=== PATIENT | female | born 1995 | race African-American/Black ===

== ENCOUNTER 2019-02-14 23:35 | Emergency (ER) | payer OTHER ==
[2019-02-14 23:58] LABS: #Eosinphils 0.2 thou/uL (0.0-0.7); #Lymphocytes 2.3 thou/uL (1.20-3.40); #Neutrophils 7.5 thou/uL (1.40-6.50); %Basophils 0.3 % (0.0-1.0); %Eosinophils 1.4 % (0.0-10.0); %Lymphocytes 21.2 % (21.0-51.0); %Monocytes 8.9 % (0.0-10.0); %Neutrophils 68.2 % (42.0-75.0); Hemoglobin 13.4 g/dL (12.0-16.0); Mean Corpuscular HGB CONC 34.9 g/dL (32.0-36.0); Mean Corpuscular Hemoglobin 29.4 pg (27.0-31.0); Mean Corpuscular Volume 84.3 fL (78.0-98.0); Mean Platelet Volume 8.4 fL (7.4-10.4); Platelet Count 316 thou/uL (130-400); RBC Distribution Width 11.6 % (11.5-14.5); Red Blood Cell (RBC) Count 4.56 mill/uL (4.20-5.40); White Blood Cell (WBC) Count 10.9 thou/uL (4.8-10.8)
--- NOTE | 2019-02-15 00:30 | ULT ---
Ultrasound pelvis: DATE: 02/15/2019 12:08 AM HISTORY: 23-year-old female with pelvic pain and vaginal bleeding. FINDINGS: There is an intrauterine gestational sac containing pole. Carlyle rump length: 5.9 cm. 12 weeks 3 days. heart rate: 163 BPM. Placenta: Posterior and covers the internal cervical os. lie: Breech. No subchorionic hemorrhage. Bilateral ovaries normal in size with blood flow demonstrated. 2 cm round right ovarian corpus luteal cyst. No free fluid in the cul-de-sac. IMPRESSION: 1. Live late first trimester intrauterine gestation estimated to be 12 weeks 3 days gestational age. 2. Low-lying placenta. Recommend follow-up.
[2019-02-15 00:50] LABS: Bilirubin Negative (Negative); Blood, Urine Negative (Negative); Clarity Clear (Clear); Glucose, Urine (Dipstick) Normal (Negative); Leukocyte Negative Leu/uL (Negative); Nitrite Negative (Negative); Protein, Urine (Dipstick) Negative (Neg-Trace); Urobilinogen Normal mg/dL (Less than 2)
[2019-02-17 00:53] LABS: Chlamydia by PCR Not Detected (NotDetected); GC by PCR Not Detected (NotDetected)
== END 2019-02-15 01:28 | disposition home or self-care (01) ==
LOC: ERS 23:35
DX: O44.51 Low lying placenta with hemorrhage, first trimester (principal); Z3A.12 12 weeks gestation of pregnancy
CPT/HCPCS: 36415; 76856; 81003; 84702; 85025; 86900; 86901; 87480; 87491; 87510; 87591; 87660; 90384; 93976; 96372

== ENCOUNTER 2019-04-12 13:32 | Outpatient (CLI) | payer OTHER ==
--- NOTE | 2019-04-12 19:19 | ULT ---
OB ULTRASOUND: History: anatomy. FINDINGS: Viable intrauterine . Gestational age by ultrasound is 20 weeks 2 days. BPD: 19 weeks 1 days HC: 19 weeks 6 days AC: 20 weeks 4 days FL: 21 weeks 2 days UFW: 366 grams, 20 weeks 6 days Amniotic fluid: Adequate, RUDDY recorded at 11.28 cm heart rate: 149 beats/minute Placenta: Posterior Presentation: Vertex Anatomy: Intracranial contents, four-chamber heart, stomach, kidneys, cord insertion, bladder, spine, lips, nose, extremities and three vessel cord were all imaged. No abnormality identified. IMPRESSION: 20 weeks 2 days gestation by ultrasound measurement. Placenta is posterior and low-lying although the internal os is clear. POS: [facility]
== END 2019-04-12 13:33 | disposition home or self-care (01) ==
LOC: BICULT 13:32
PROVIDERS: ATTEND Family Medicine
DX: O09.892 Supervision of other high risk pregnancies, second trimester (principal); O44.42 Low lying placenta NOS or without hemorrhage, second trimester; Z3A.20 20 weeks gestation of pregnancy
CPT/HCPCS: 76805